=== PATIENT | female | born 1945 | race Caucasian/White ===

== ENCOUNTER 2023-03-08 16:06 | Outpatient (CLI) | payer MEDICARE, SELFPAY ==
--- NOTE | 2023-03-08 16:13 | XR_ITS ---
WS: [id number] XR chest 2V* [id number] REASON FOR EXAM: R07.81 - Pleurodynia FINDINGS: Significant tortuosity and ectasia of the thoracic aorta without aneurysmal dilatation. The heart size is within normal limits. Calcified granulomatous disease. Significant artifact overlying the lung lopez on the PA view which appears to be related to the matthieu ent's back. This creates the impression of multiple small nodules. There is a vague density in the left lower lung field. Uncertain if this also is artifact. XR/XR chest 2V* [id number] IMPRESSION: Excessive overlying artifact limits diagnostic quality the examination. The fro ntal view should be repeated with the artifact removed if possible.
--- NOTE | 2023-03-08 16:13 | XR_ITS ---
WS: [id number] XR elbow LT min 3V* [id number] REASON FOR EXAM: M25.522 - Pain in left elbow FINDINGS: The anterior fat pad is identified but does not appear to be displaced by an effusion. No acute fracture or focal bone lesion. Joint spaces of the elbow are intact and relatively well preserved. Prominent osteophyte from the coronoid process. This could be chronic posttraumatic change. There may be some narrowing of the ulna no humeral joint space anteriorly and posteriorly. No soft tissue abnormality. 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
== END 2023-03-08 16:07 | disposition home or self-care (01) ==
PROVIDERS: PCP Nurse Practitioner Family; Visit Provider Nurse Practitioner Family
DX: M25.522 Pain in left elbow (principal); R07.81 Pleurodynia; N39.0 Urinary tract infection, site not specified; I10 Essential (primary) hypertension; R53.83 Other fatigue
CPT/HCPCS: 71046; 73080; 80053; 80061; 81000; 84443; 85025; 87077; 87086; 87184

== ENCOUNTER 2023-03-10 15:33 | Outpatient (CLI) | payer MEDICARE, SELFPAY ==
--- NOTE | 2023-03-10 15:50 | XRR_ITS ---
PROCEDURE INFORMATION: Exam: XR Chest Exam date and time: 03/10/2023 3:52 PM Age: 78 years old Clinical indication: Pain; Pleuordynia; Additional info: R07.81 - pleurodynia TECHNIQUE: Imaging protocol: Radiologic exam of the chest. Views: 2 views. COMPARISON: CR XR chest 2V* [id number] 03/08/2023 4:23 PM FINDINGS: Airway: Lateral view demonstrates increased AP diameter of the chest suggestive of obstructive airways disease. Frontal view demonstrates overall decreased inspiratory effort. Mild increased interstitial markings are seen within the lower lungs, left slightly greater than right. Findings likely reflect component of mild interstitial infiltrate or pneumonitis, with some component of small amount of subsegmental atelectasis. No consolidation. Lungs: See Airway finding. Pleural spaces: Unremarkable. No pleural effusion. No pneumothorax. Heart/Mediastinum: No significant cardiomegaly. Vasculature: Arteriosclerosis of the thoracic aorta. Bones/joints: Thoracic kyphosis is seen. XR/XR chest 2V* [id number] IMPRESSION: Mild increased interstitial markings lower lungs, [id number], suggesting mild interstitial infiltrate or pneumonitis with some component of small amount of subsegmental atelectasis, for follow-up. No consolidation or effusion.
== END 2023-03-10 15:34 | disposition home or self-care (01) ==
LOC: RAD 15:37
PROVIDERS: PCP Nurse Practitioner Family; Visit Provider Nurse Practitioner Family
DX: R07.81 Pleurodynia (principal)
CPT/HCPCS: 71046

== ENCOUNTER → 2023-03-14 13:58 | Outpatient (BNVA) | payer MEDICARE, SELFPAY | PROVIDERS: PCP Nurse Practitioner Family; Visit Provider Nurse Practitioner Family | DX: N39.0 Urinary tract infection, site not specified (principal) | CPT/HCPCS: 87086 ==

== ENCOUNTER 2023-03-21 12:55 | Emergency (ER) | payer MEDICARE, SELFPAY ==
[2023-03-21 13:00] VITALS: BP 112/80; PULSE 88; RESP 14; TEMP 36.7; O2SAT 92; BMI 27.4
--- NOTE | 2023-03-21 13:03 | ECG_ITS ---
[facility] Test Date: 2023-03-21 Pat Name: Angelic Rodriguez Department: Room: Gender: Female Bench Molder: : 1945 Requested By: Gonsalo Palma Order Number: [id number] Brendon MD: Rashard Parr M.D. Measurements Intervals [place] Rate: 96 P: 0 OR: 0 QRS: -12 QRSD: 93 T: -3 QT: 368 QTc: 465 Interpretive Statements ATRIAL FIBRILLATION MODERATE VOLTAGE CRITERIA FOR LVH, CONSIDER NORMAL VARIANT [MEETS CRITERIA IN ONE OF: R(aVL), S(V1), R(V5), R(V5/V6)+S(V1)] MODERATE ST DEPRESSION [0.05+ mV ST DEPRESSION] No previous ECG available for comparison Electronically Signed On 03-21-2023 16:52:44 CDT by Rashard Parr M.D. [id number]
--- NOTE | 2023-03-21 13:09 | XRR_ITS ---
PROCEDURE INFORMATION: Exam: XR Chest Exam date and time: 03/21/2023 1:45 PM Age: 78 years old Clinical indication: Other: Weakness TECHNIQUE: Imaging protocol: Radiologic exam of the chest. Views: 1 view. COMPARISON: CR XR chest 2V* [id number] 03/08/2023 3:52 PM FINDINGS: Lungs: Lung volumes are decreased but unchanged. Patchy indistinct interstitial/ground-glass opacities mid lung zones overall slightly improved from previous study possibly secondary to viral pneumonitis. Pleural spaces: Unremarkable. No pleural effusion. No pneumothorax. Heart/Mediastinum: Heart is moderately enlarged, stable. Bones/joints: Unremarkable for age. XR/XR chest 1V portable [id number] IMPRESSION: Stable cardiomegaly with patchy ground-glass infiltrates mid lung zones slightly improved from earlier study.
[2023-03-21 13:26] LABS: Basophils # 0.1 10^3/uL (0.0-0.1); Basophils % 0.9 %; Eosinophils % 0.3 %; Hematocrit 40.5 % (37.0-47.0); Hemoglobin 13.6 g/dL (11.5-15.3); Lymphocytes # 1.3 10^3/uL (0.8-4.8); Lymphocytes % 13.7 %; Mean Corpuscular HGB Conc 33.6 g/dL (30.0-36.0); Mean Corpuscular Hemoglobin 32.9 pg (28.0-34.0); Mean Corpuscular Volume 97.8 fl (81-99); Mean Platelet Volume 10.5 fL (7.4-10.4); Monocytes # 0.8 10^3/uL (0.2-0.9); Monocytes % 8.5 %; Neutrophils # 6.99 10^3/uL (1.8-7.7); Neutrophils % 76.3 %; Nucleated Red Blood Cells % 0 %; Platelet Count 192 10^3/cmm (130-400); Red Blood Count 4.14 10^6/uL (4.1-5.3); White Blood Count 9.2 10^3/uL (4.0-10.0)
[2023-03-21 13:58] LABS: Alanine Aminotransferase 7 U/L (0-33); Albumin Level 3.1 g/dL (3.5-5.2); Alkaline Phosphatase 135 U/L (35-105); Aspartate Amino Transferase 16 U/L (0-32); Blood Urea Nitrogen 11 mg/dL (8-23); Calcium 9.1 mg/dL (8.5-10.5); Carbon Dioxide 19 mmol/L (22-29); Chloride 97 mmol/L (98-107); Creatinine Clr Calc Pharmacy 57.5012; Globulin 4.2 g/dL (1.3-4.6); Glucose 237 mg/dL (65-115); Magnesium 1.9 mg/dL (1.7-2.3); NT Pro B Type Natriuretic Pept 3568 pg/mL (0-450); Osmolality Calculated 283 mOsm/kg (285-295); Sodium 133 mmol/L (136-145); Total Bilirubin 1.1 mg/dL (0.15-1.2); Total Protein 7.3 g/dL (6.6-8.7)
--- NOTE | 2023-03-21 14:01 | ED_ITS ---
HPI - Weakness General: Chief complaint: Weakness Stated complaint: general weakness Time Seen by Provider: 03/21/23 13:08 History of Present Illness: Patient presents to the ER with complaints of generalized weakness. Started earlier today per family. Patient does have a history of a stroke in the past and has left-sided upper and lower extremity weakness to paralysis. Patient has been recently treated for with an antibiotic for a UTI. of last week patient went back to the clinic at [place] and had a culture done. Patient does not know the results of that. Family said patient was rubbing her chest earlier today so they are on for sure if she was having chest pain at that time also patient was complaining of low back pain was similar when she had diagnosed with UTI. MD Complaint: generalized weakness Onset (ago): day(s) (Today) Duration: constant Location: generalized Migration: none Severity: mild Relieving factors: none Exacerbating factors: none Associated symptoms: Denies chest pain, chills, dysuria, fever(s), headache(s), nausea or vomiting Review of Systems General: Reports: 10 or more systems reviewed and unremarkable except in HPI and below Const: Denies: fever(s) or chills Eyes: Denies: change in vision or photophobia ENMT: Denies: throat pain or odynophagia Card: Denies: chest pain Resp: Denies: dyspnea, productive cough or non-productive cough GI: Denies: abdominal pain, nausea or vomiting : Reports: flank pain; Denies: difficulty voiding or dysuria Musc: Reports: back pain; Denies: neck pain Skin/Breast: Denies: rash or pruritus Neuro: Denies: headache(s) Psych: Denies: anxiety or depression PFSH ED PFSH: Medical History A-fib Aneurysm Hyperlipidemia Hypertension Stroke Surgical History Total knee replacement status Social History Smoking and tobacco status: never smoked Second hand smoke exposure: No Alcohol intake: never Substance/Drug Use: never Adopted: No Caregiver/support person: Yes Lives independently: No Marital status: / Number of children: 6 service: No Do you think of yourself as: Straight/Heterosexual Current gender identity: Female Physical Exam Const: COMMON NORMALS: no acute distress, patient oriented x3, no limitations, healthy appearing, alert and well nourished HENMT: COMMON NORMALS: normocephalic, atraumatic, hearing grossly normal bilaterally, external ears normal, Normal external nose present and moist oral mucous membranes HEAD & SCALP: normocephalic and atraumatic NOSE: Normal external nose present EXTERNAL EAR: Yes external ears normal Eye: COMMON NORMALS: Equal, round and reactive pupils present, EOMs intact bilaterally, conjunctivae normal and no scleral icterus CONJUNCTIVA: Yes conjunctivae normal PUPIL: Yes Equal, round and reactive pupils present Neck/C-Spine: COMMON NORMALS: full ROM, no lymphadenopathy, no meningeal signs, no JVD and Thyroid normal THYROID: Thyroid normal Lymph: LYMPHATIC: no lymphadenopathy noted Chest: COMMONS NORMALS: normal inspection of the chest and normal palpation of entire chest wall Resp: COMMON NORMALS: normal respiratory effort, No retractions, No use of accessory muscles and clear to auscultation bilaterally AUSCULTATION: clear to auscultation bilaterally Cardio: COMMON NORMALS: no JVD, regular rate, S1 normal heart sound present and S2 normal heart sound present RATE: regular rate HEART SOUNDS: S1 normal heart sound present and S2 normal heart sound present GI: COMMON NORMALS: Normal to inspection, nondistended, normoactive bowel sounds present, Soft to palpation, non-tender, No hepatosplenomegaly present and no masses PALPATION: Yes Soft to palpation and Yes No hepatosplenomegaly present : COMMON NORMALS: Yes no CVA tenderness BLADDER/KIDNEY EXAM: Yes no CVA tenderness Back/Pelvis: COMMON NORMALS: no CVA tenderness Neuro: COMMON NORMALS: patient oriented x3 SENSORIUM/ORIENTATION: Yes alert MENINGEAL SIGNS: Yes no meningeal signs Course Vital Signs: Vital signs: Vital Signs Temperature 98.0 F 03/21/23 13:00 Pulse Rate 93 03/21/23 14:43 Respiratory Rate 16 03/21/23 14:43 Blood Pressure 112/80 03/21/23 14:43 Pulse Oximetry 96 03/21/23 14:43 Oxygen Delivery Me thod Room Air 03/21/23 14:43 MDM - Weakness Medical Decision Making Patient presents to the ER with complaints of weakness x3 weeks. Patient has had frequent falls, UTI and low blood pressure. Patient just finished an antibiotic for UTI. Family thinks she has not gotten over the last week. Physical exam was performed lab work was obtained which did show a significant urinary tract infection was still in place. Patient was given 1 dose of Levaquin here in the IV. Patient will be discharged home on Levaquin. Patient is to follow-up with her PCP within the next 1 week for further evaluation and treatment of symptoms. Medical Records I reviewed the patient's medical records. Lab Data I reviewed the patient's lab results. 03/21/23 13:20 03/21/23 13:20 Radiology Impressions Chest X-Ray 03/21/23 13:09 IMPRESSION: Stable cardiomegaly with patchy ground-glass infiltrates mid lung zones slightly improved from earlier study. Laboratory Results WBC 9.2 10^3/uL (4.0-10.0) 03/21/23 13:20 RBC 4.14 10^6/uL (4.1-5.3) 03/21/23 13:20 Hgb 13.6 g/dL (11.5-15.3) 03/21/23 13:20 Hct 40.5 % (37.0-47.0) 03/21/23 13:20 MCV 97.8 fl (81-99) 03/21/23 13:20 MCH 32.9 pg (28.0-34.0) 03/21/23 13:20 MCHC 33.6 g/dL (30.0-36.0) 03/21/23 13:20 RDW 14.0 % (12.1-15.1) 03/21/23 13:20 Plt Count 192 10^3/cmm (130-400) 03/21/23 13:20 MPV 10.5 fL (7.4-10.4) H 03/21/23 13:20 Neut % (Auto) 76.3 % 03/21/23 13:20 Lymph % (Auto) 13.7 % 03/21/23 13:20 [place] % (Auto) 8.5 % 03/21/23 13:20 Eos % (Auto) 0.3 % 03/21/23 13:20 Baso % (Auto) 0.9 % 03/21/23 13:20 Neut # (Auto) 6.99 10^3/uL (1.8-7.7) 03/21/23 13:20 Lymph # (Auto) 1.3 10^3/uL (0.8-4.8) 03/21/23 13:20 [place] # (Auto) 0.8 10^3/uL (0.2-0.9) 03/21/23 13:20 Eos # (Auto) 0.0 10^3/uL (0.0-0.8) 03/21/23 13:20 Baso # (Auto) 0.1 10^3/uL (0.0-0.1) 03/21/23 13:20 Nucleated RBC % (auto) 0 % 03/21/23 13:20 Nucleated RBCs # 0.0 /100WBC 03/21/23 13:20 Sodium 133 mmol/L (136-145) L 03/21/23 13:20 Potassium 4.0 mmol/L (3.5-5.1) 03/21/23 13:20 Chloride 97 mmol/L (98-107) L 03/21/23 13:20 Carbon Dioxide 19 mmol/L (22-29) L 03/21/23 13:20 Anion Gap 21.0 (5-19) H 03/21/23 13:20 BUN 11 mg/dL (8-23) 03/21/23 13:20 Creatinine 0.8 mg/dL (0.5-0.9) 03/21/23 13:20 GFR Calculation Not Reportable 03/21/23 13:20 Glucose 237 mg/dL (65-115) H 03/21/23 13:20 Calculated Osmolality 283 mOsm/kg (285-295) L 03/21/23 13:20 Calcium 9.1 mg/dL (8.5-10.5) 03/21/23 13:20 Magnesium 1.9 mg/dL (1.7-2.3) 03/21/23 13:20 Total Bilirubin 1.1 mg/dL (0.15-1.2) 03/21/23 13:20 AST 16 U/L (0-32) 03/21/23 13:20 ALT 7 U/L (0-33) 03/21/23 13:20 Alkaline Phosphatase 135 U/L (35-105) H 03/21/23 13:20 Troponin T Baseline 13 ng/L (0-10) H 03/21/23 13:20 Troponin T 120 Minute 18.30 ng/L (0-10) H 03/21/23 15:30 Delta Troponin T 5.30 ABS# (0-10) 03/21/23 15:30 NT-Pro-B Natriuret Pep 3568 pg/mL (0-450) H 03/21/23 13:20 Total Protein 7.3 g/dL (6.6-8.7) 03/21/23 13:20 Albumin 3.1 g/dL (3.5-5.2) L 03/21/23 13:20 Globulin 4.2 g/dL (1.3-4.6) 03/21/23 13:20 Urine Color [place] (Yellow) 03/21/23 15:30 Urine Appearance Cloudy (CLEAR) A 03/21/23 15:30 Urine pH 6 (5-7) 03/21/23 15:30 Ur Specific [place] 1.015 (1.005-1.030) 03/21/23 15:30 Urine Protein 3+ (Negative) H 03/21/23 15:30 Urine Glucose (UA) Norm (Normal) 03/21/23 15:30 Urine Ketones Negative (Negative) 03/21/23 15:30 Urine Blood Neg (Negative) 03/21/23 15:30 Urine Nitrate Positive (Negative) H 03/21/23 15:30 Urine Bilirubin 2+ (Negative) H 03/21/23 15:30 Urine Urobilinogen 4+ mg/dL (Negative) H 03/21/23 15:30 Ur Leukocyte Esterase Negative (Negative) 03/21/23 15:30 Urine RBC Rare /hpf (0-2) 03/21/23 15:30 Urine WBC 0-4 /hpf (0-5) H 03/21/23 15:30 Ur Squamous Epith Cells Rare /hpf (0-5) 03/21/23 15:30 Amorphous Sediment 1+ /hpf 03/21/23 15:30 Urine Bacteria 3+ /hpf (NONE) H 03/21/23 15:30 Urine Mucus 1+ /hpf 03/21/23 15:30 EKG Data EKG 1: I personally reviewed and interpreted this EKG as follows: EKG interpretation date: 03/21/23 EKG interpretation time: 14:27 Prior EKG tracings: not available for review Interpretation: EKG showed ventricular rate of 96 bpm, in atrial fibrillation type pattern, QRS duration 93, QTc of 421, moderate voltage for LVH, moderate to ST depression. Discharge Plan Discharge Patient Disposition: Home Clinical Impression: Urinary tract infection Qualifiers: Urinary tract infection type: acute cystitis Hematuria presence: without h ematuria Qualified Code(s): N30.00 - Acute cystitis without hematuria Condition: Stable Prescriptions: New levofloxacin 500 mg tablet 500 mg PO DAILY 10 Days Qty: 10 0RF No Action aspirin 325 mg tablet 325 mg PO QAM atorvastatin 40 mg tablet 40 mg PO BEDTIME metoprolol tartrate 25 mg tablet See Rx Instructions .ROUTE .COMPLEX Rx Instructions: 50mg po qam and 25mg po bedtime omeprazole 20 mg tablet,delayed release (DR/EC) 20 mg PO QAM amlodipine 5 mg tablet 5 mg PO QAM magnesium oxide [MagOx] 400 mg (241.3 mg magnesium) tablet See Rx Instructions .ROUTE .COMPLEX Rx Instructions: TAKE 2 TABLETS BY MOUTH ON MONDAYS,MONDAY, AND FRIDAYS; lisinopril 20 mg tablet 20 mg PO BEDTIME (DME) hospital bed See Rx Instructions .Route .MEDSUPPLY Qty: 1 0RF Rx Instructions: As directed (DME) wheelchair See Rx Instructions .Route .MEDSUPPLY Qty: 1 0RF Rx Instructions: As directed potassium chloride 10 mEq capsule, extended release 10 meq PO BID Qty: 60 0RF Miralax 17 gram Powder In Packet 17 g PO DAILY PRN (Reason: Constipation) Lubricant Eye Drops 0.25 % Drops 1 drp ophthalmic (eye) Q4H PRN (Reason: Dry Eye(S)) Flonase 50 mcg/actuation [place],Suspension 2 spray INTRANASAL BEDTIME Rx Instructions: administer into each nostril Claritin 10 mg Tablet 10 mg PO BEDTIME furosemide 40 mg tablet 40 mg PO QAM Discharge Orders: Discharge ED (Routine); Ordered 03/21/23 Ordered By: Gonsalo Palma Referrals: Joceline Mix FNP [Primary Care Provider] - Patient Instructions: Urinary Tract Infection - Women Coding Level of Care Code ED [place] [facility] for Drew Galicia
[2023-03-21 14:14] VITALS: BP 112/80; PULSE 93; RESP 14; O2SAT 94
[2023-03-21 14:17] LABS: Troponin(5th) Baseline 13 ng/L (0-10)
[2023-03-21 14:43] VITALS: BP 112/80; PULSE 93; RESP 16; O2SAT 96
--- NOTE | 2023-03-21 15:50 | ECG_ITS ---
[facility] Test Date: 2023-03-21 Pat Name: Angelic Rodriguez Department: Room: Gender: Female Debubblizer: : 1945 Requested By: Gonsalo Palma Order Number: [id number] Brendon MD: Rashard Parr M.D. Measurements Intervals [place] Rate: 94 P: 0 OR: 0 QRS: -3 QRSD: 98 T: 3 QT: 379 QTc: 475 Interpretive Statements ATRIAL FIBRILLATION MODERATE VOLTAGE CRITERIA FOR LVH, CONSIDER NORMAL VARIANT [MEETS CRITERIA IN ONE OF: R(aVL), S(V1), R(V5), R(V5/V6)+S(V1)] NONSPECIFIC ST & T-WAVE ABNORMALITY Compared to ECG 03/21/2023 14:27:04 T-wave abnormality now present ST (T wave) deviation no longer present Electronically Signed On 03-21-2023 16:56:33 CDT by Rashard Parr M.D. [id number]
[2023-03-21 16:21] LABS: Urine Color Orange (Yellow)
[2023-03-21 16:22] LABS: Add Urine Microscopic? YES; Amorphous Sediment Urine 1+ /hpf; Bacteria Urine 3+ /hpf; Bilirubin Urine 2+ (Negative); Blood Urine Neg (Negative); Glucose Urine UA Norm (Normal); Ketones Urine Negative (Negative); Leukocyte Esterase Urine Negative (Negative); Mucus Urine 1+ /hpf; Nitrate Urine Positive (Negative); Protein Urine 3+ (Negative); RBC Urine RARE /hpf (0-2); Specific Gravity, Urine 1.015 (1.005-1.030); Squamous Epithelial Cell Urine RARE /hpf (0-5); Urine Appearance Cloudy (CLEAR); Urobilinogen Urine 4+ mg/dL (Negative); WBC Urine 0-4 /hpf (0-5); pH Urine 6 (5-7)
[2023-03-21 16:23] LABS: Add Urine Culture? Yes
[2023-03-21] MEDS: levofloxacin-dextrose 5 % 500 MG/100 ML PREMIX 100 MG IV (16:47)
== END 2023-03-21 18:37 | disposition home or self-care (01) ==
PROVIDERS: Emergency Provider Emergency Medicine; PCP Nurse Practitioner Family
DX: N30.00 Acute cystitis without hematuria (principal); Z79.82 Long term (current) use of aspirin; I10 Essential (primary) hypertension; E78.5 Hyperlipidemia, unspecified; Z86.73 Personal history of transient ischemic attack (TIA), and cerebral infarction without residual deficits
CPT/HCPCS: 36415; 71045; 80053; 81001; 83735; 83880; 84484; 85025; 87077; 87086; 87186; 93005; 96365; 96366; 99285; J1956

== ENCOUNTER → 2023-03-22 14:32 | Outpatient (BNVA) | payer MEDICARE, SELFPAY | PROVIDERS: PCP Nurse Practitioner Family; Visit Provider Nurse Practitioner Family | DX: R73.09 Other abnormal glucose (principal) | CPT/HCPCS: 83036 ==

== ENCOUNTER 2023-03-24 21:24 | Emergency (ER) | payer MEDICARE, SELFPAY ==
[2023-03-24] VITALS (7 sets, daily range): BP systolic 73–114; BP diastolic 61–82; PULSE 115–148; RESP 13–28; TEMP 36.2; O2SAT 94–97; BMI 28.8
--- NOTE | 2023-03-24 21:27 | ED_ITS ---
Documented by User: Pal Kat MD 04/05/23 07:16 HPI - Syncope General: Chief Complaint: Syncope Stated Complaint: NEAR SYNCOPE Time Seen by Provider: 03/24/23 21:27 History of Present Illness: Ms. Rodriguez is a 78-year-old lady with complex past medical history including atrial fibrillation, hypertension, hyperlipidemia, stroke, Mckeon's palsy presenti ng to the emergency department for presyncopal event. She reports her baseline health and had sudden onset of symptoms at rest with a prior syncopal symptoms associated with nausea. She notes some shortness of breath and chest discomfort though these are quite mild. She no longer feels lightheaded. She does have baseline neurologic deficits however reports that these are unchanged. Intensity symptoms when present was moderate to severe. Course has improved mildly. No other specific changes in health, exacerbating, or alleviating factors identified. Per supplemental information provided by family patient has had ongoing urinary tract infection, she was seen on 03/21 in the emergency department and treated with IV antibiotics. She was switched to levofloxacin which she has been eric braun. Review of Systems General: Reports: 10 or more systems reviewed and unremarkable except in HPI and below PFSH ED PFSH: Medical History A-fib Aneurysm Hyperlipidemia Hypertension Stroke Surgical History Total knee replacement status Social History Smoking and tobacco status: never smoked Second hand smoke exposure: No Alcohol intake: never Substance/Drug Use: never Adopted: No Caregiver/support person: Yes Lives independently: No Marital status: / Number of children: 6 service: No Do you think of yourself as: Straight/Heterosexual Current gender identity: Female Physical Exam Const: COMMON NORMALS: alert GENERAL APPEARANCE: cooperative, well developed and ill appearing HENMT: COMMON NORMALS: normocephalic and atraumatic HEAD & SCALP: normocephalic and atraumatic THROAT: posterior oropharynx normal Eye: COMMON NORMALS: conjunctivae normal CONJUNCTIVA: Yes conjunctivae normal SCLERA: sclerae normal Neck/C-Spine: COMMON NORMALS: supple GENERAL: Yes trachea midline Resp: COMMON NORMALS: clear to auscultation bilaterally EFFORT & INSPECTION: Yes able to speak in complete sentences AUSCULTATION: clear to auscultation bilaterally Cardio: RATE: tachycardic RHYTHM: abnormal rhythm irregularly irregular GI: COMMON NORMALS: Soft to palpation PALPATION: Yes Soft to palpation and No Tenderness to palpation present (GI) PERCUSSION: normal to percussion Extremity: GENERAL: Yes normal exam except as noted and No edema Neuro: SENSORIUM/ORIENTATION: Yes alert and No Orientation impaired OTHER: Facial droop and baseline deficits reported chronic Psych: COMMON NORMALS: mental status grossly normal and Normal thought process present THOUGHT PROCESS: Normal thought process present Course Vital Signs: Vital signs: Vital Signs Temperature 0 F L 03/25/23 06:10 Pulse Rate 0 L 03/25/23 06:10 Respiratory Rate 0 L 03/25/23 06:10 Blood Pressure 0/0 03/25/23 06:10 Pulse Oximetry 0 L 03/25/23 06:10 Oxygen Delivery Me thod Nasal Cannula 03/25/23 00:30 Oxygen Flow Rate 3 03/25/23 00:30 MDM - Syncope Medical Decision Making 78-year-old lady with history of stroke and atrial fibrillation presenting with presyncopal episode in the context of atrial fibrillation with RVR. Rates 140s to 160s with initially adequate blood pressure. Patient is chronically ill in appearance. IV fluids and low-dose metoprolol ordered. Patient received a single dose of 2.5 mg metoprolol which did improve rate to more in the 100-140 range. Subsequently additional information provided was that patient currently has UTI. Clinical picture is likely more consistent with urosepsis and subsequent trigger of A-fib with RVR. Lactate is elevated. Additional fluids to be 30 cc/kg fluid requirements ordered. Antibiotics ordered. Patient treated for nausea and vomiting likely at least partially secondary to sepsis. Abdominal exam remains benign. Labs notable for leukocytosis, normal hemoglobin and platelet count. Metabolic panel with evidence of metabolic stress secondary to lactic acidosis, creatinine elevated above baseline. BNP is elevated however on [id number] ultrasound with limited views of the heart and IVC patient still has some collapse of IVC a nd overall ejection fraction appears normal to mildly reduced. Chest x-ray demonstrates no lobar consolidation or pneumothorax. Patient does have cardiomegaly. The results of ED evaluation were discussed with the patient including plan for admission due to requirement for level of care not available if discharged to prevent significant worsening/deterioration. Patient agreeable with plan. Discussed with hospitalist service who was agreeable to admit patient. Discussion with admitting physician additional imaging ordered and pending at time of admission. Discussed with overnight ED physician Dr. Kaplan. 78-year-old female who I was requested to see at the bedside for potential central line placement due to the need for multiple medications including pressors for blood pressure support. On my evaluation at bedside, the patient was quite short of breath. She was quite tachypneic. She had come back from CTA of the chest and belly which was pending results at the time. Ultrasound was used to locate the right IJ which was enlarged/engorged. Line was placed with good blood return, no resistance, no complication. Sometime later, I was requested by nursing staff to evaluate the patient at the bedside again. She essentially had gone nonresponsive at that point with agonal respirations. Cfb-ehsrs-[id number] ventilation was immediately started. The patient began to bradycardia down, to the 40s. Pulse was not palpable. CPR was started immediately. Epinephrine was given for PEA. The patient was intubated with an 8 endotracheal tube, 24 at the lip using a MAC 4 blade without complication. After 2 mg of epinephrine, pulse was obtained, but only for short duration, as the patient bradycardia down again. She was given more epinephrine and bicarbonate at that point. No rhythm changes noted after 3 more rounds of CPR. Family was called to the bedside, allowed to say goodbye, and code was stopped/terminated. Time of was 1:53 AM Medical Records I reviewed the patient's medical records. Lab Data I reviewed the patient's lab results. 03/24/23 21:51 03/24/23 21:51 Radiology Impressions Chest X-Ray 03/24/23 21:39 IMPRESSION: Cardiomegaly, negative for infiltrate Abdomen/Pelvis CTA 03/24/23 23:39 IMPRESSION: 1. 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 2. Hepatic steatosis. 3. Left kidney cyst, negative for follow-up advised. 4. 9.2 mm calcified fibroid. 5. Diverticulosis without diverticulitis. 6. Dumont catheter in the urinary bladder with air in the urinary bladder presumed iatrogenic. 7. Reflux of contrast into the intrahepatic veins suggesting congestive heart failure. 8. Gallbladder wall appears prominent with pericholecystic fluid, ultrasound could further evaluate this. THIS REPORT CONTAINS FINDINGS THAT MAY BE CRITICAL TO PATIENT CARE. The findings were verbally communicated via telephone conference with Dr. Hernandez at 1:37 AM CDT on 03/25/2023. The findings were acknowledged and understood. COMMENTS: Consistent with the [employer]'s Incidental Findings Committee white paper (J Am Yanick Radiol 2018): Any incidental renal lesion less than 1 cm or classified as too small to characterize, or any incidental cystic renal lesion characterized as simple-appearing, is likely benign. No follow-up imaging is recommended for these lesions per consensus recommendations based on imaging criteria. Chest CT 03/25/23 00:43 IMPRESSION: 1. Large bilateral pulmonary emboli extending from the distal portions of the right and left main pulmonary arteries with right heart strain given an RV to LV ratio of approximately 1.75. 2. Emphysematous changes. 3. Patchy bilateral peripheral airspace infiltrates. 4. Left lower lobe 12.4 mm pulmonary nodule. For both low risk and high risk patients, consider CT Chest at 3 months, PET/CT, or biopsy. (Reference: Nella) 5. Right hepatic lobe cyst. 6. Left kidney cyst, negative for follow up. 7. Gallbladder wall calcification suspected. 8. Aorta bi-iliac artery stent. 9. Coronary artery atherosclerotic calcifications. COMMENTS: 1. Consistent with the [employer]'s Incidental Findings Committee white paper (J Am Yanick Radiol 2018): Any incidental renal lesion less than 1 cm or classified as too small to characterize, or any incidental cystic renal lesion characterized as simple-appearing, is likely benign. No follow-up imaging is recommended for these lesions per consensus recommendations based on imaging criteria. 2. In the absence of a history or active diagnosis of lung cancer, it is recommended that this patient with emphysema be evaluated for enrollment in a low dose CT lung cancer screening program. REFERENCES: Nella Conde, et al. Guidelines for Management of Incidental Pulmonary Nodules Detected on CT Images: From the Fleischner Society 2017. Radiology. 2017;284(1):228-243. ADDENDUM: 03/25/23 0128 THIS REPORT CONTAINS FINDINGS THAT MAY BE CRITICAL TO PATIENT CARE. The findings were verbally communicated via telephone conference with NISHA HERNANDEZ at 1:26 AM TERRENCE on 03/25/2023. The findings were acknowledged and understood. Laboratory Results WBC 13.2 10^3/uL (4.0-10.0) H 03/24/23 21:51 RBC 4.23 10^6/uL (4.1-5.3) 03/24/23 21:51 Hgb 14.1 g/dL (11.5-15.3) 03/24/23 21:51 Hct 42.3 % (37.0-47.0) 03/24/23 21:51 MCV 100.0 fl (81-99) H 03/24/23 21:51 MCH 33.3 pg (28.0-34.0) 03/24/23 21:51 MCHC 33.3 g/dL (30.0-36.0) 03/24/23 21:51 RDW 14.4 % (12.1-15.1) 03/24/23 21:51 Plt Count 178 10^3/cmm (130-400) 03/24/23 21:51 MPV 10.8 fL (7.4-10.4) H 03/24/23 21:51 Neut % (Auto) 66.3 % 03/24/23 21:51 Lymph % (Auto) 24.5 % 03/24/23 21:51 [place] % (Auto) 7.1 % 03/24/23 21:51 Eos % (Auto) 0.3 % 03/24/23 21:51 Baso % (Auto) 0.7 % 03/24/23 21:51 Neut # (Auto) 8.74 10^3/uL (1.8-7.7) H 03/24/23 21:51 Lymph # (Auto) 3.2 10^3/uL (0.8-4.8) 03/24/23 21:51 [place] # (Auto) 0.9 10^3/uL (0.2-0.9) 03/24/23 21:51 Eos # (Auto) 0.0 10^3/uL (0.0-0.8) 03/24/23 21:51 Baso # (Auto) 0.1 10^3/uL (0.0-0.1) 03/24/23 21:51 Nucleated RBC % (auto) 0 % 03/24/23 21:51 Nucleated RBCs # 0.0 /100WBC 03/24/23 21:51 Sodium 136 mmol/L (136-145) 03/24/23 21:51 Potassium 5.1 mmol/L (3.5-5.1) 03/24/23 21:51 Chloride 98 mmol/L (98-107) 03/24/23 21:51 Carbon Dioxide 18 mmol/L (22-29) L 03/24/23 21:51 Anion Gap 25.1 (5-19) H 03/24/23 21:51 BUN 23 mg/dL (8-23) 03/24/23 21:51 Creatinine 1.1 mg/dL (0.5-0.9) H 03/24/23 21:51 GFR Calculation Not Reportable 03/24/23 21:51 Glucose 248 mg/dL (65-115) H 03/24/23 21:51 Calculated Osmolality 294 mOsm/kg (285-295) 03/24/23 21:51 Lactic Acid Cancelled 03/25/23 00:32 Lactic Acid (Sepsis) 8.1 mmol/L (0.5-2.2) H* 03/25/23 00:32 Calcium 9.7 mg/dL (8.5-10.5) 03/24/23 21:51 Magnesium 2.0 mg/dL (1.7-2.3) 03/24/23 21:51 Total Bilirubin 0.9 mg/dL (0.15-1.2) 03/24/23 21:51 AST 24 U/L (0-32) 03/24/23 21:51 ALT 10 U/L (0-33) 03/24/23 21:51 Alkaline Phosphatase 149 U/L (35-105) H 03/24/23 21:51 Troponin T Baseline 67 ng/L (0-10) H 03/24/23 21:51 Troponin T 120 Minute 64.01 ng/L (0-10) H 03/25/23 00:32 Delta Troponin T -2.99 ABS# (0-10) L 03/25/23 00:32 NT-Pro-B Natriuret Pep 3310 pg/mL (0-450) H 03/24/23 21:51 Total Protein 7.7 g/dL (6.6-8.7) 03/24/23 21:51 Albumin 3.4 g/dL (3.5-5.2) L 03/24/23 21:51 Globulin 4.3 g/dL (1.3-4.6) 03/24/23 21:51 Urine Color Yellow (Yellow) 03/25/23 00:20 Urine Appearance Hazy (CLEAR) A 03/25/23 00:20 Urine pH 5 (5-7) 03/25/23 00:20 Ur Specific [place] 1.030 (1.005-1.030) 03/25/23 00:20 Urine Protein Trace (Negative) 03/25/23 00:20 Urine Glucose (UA) Norm (Normal) 03/25/23 00:20 Urine Ketones Negative (Negative) 03/25/23 00:20 Urine Blood Neg (Negative) 03/25/23 00:20 Urine Nitrate Negative (Negative) 03/25/23 00:20 Urine Bilirubin Neg (Negative) 03/25/23 00:20 Urine Urobilinogen Norm mg/dL (Negative) 03/25/23 00:20 Ur Leukocyte Esterase Negative (Negative) 03/25/23 00:20 Urine RBC 0-4 /hpf (0-2) H 03/25/23 00:20 Urine WBC 0-4 /hpf (0-5) H 03/25/23 00:20 Ur Squamous Epith Cells 5-10 /hpf (0-5) H 03/25/23 00:20 Amorphous Sediment Not Reportable 03/25/23 00:20 Urine Bacteria 2+ /hpf (NONE) H 03/25/23 00:20 Critical Care Time Critical Care Time: Critical Care Time: Yes Total Critical Care Time: 35 Attestation: Due to a high probability of clinically significant, possibly life threatening deterioration, the patient required my highest level of attention and pre paredness to intervene emergently and I personally spent this critical care time directly and personally managing the patient. This critical care time included obtaining a history; examining the patient; pulse oximetry; ordering and review of laboratory and imaging studies; arranging urgent treatment with development of a management plan; evaluation of patient's response to treatment; frequent re assessment; and, discussions with other providers as applicable. It was exclusive of separately billable procedures. Discharge Plan Discharge Patient Disposition: Clinical Impression: Severe sepsis, Acute UTI, Septic shock, Pulmonary embolism Condition: Prescriptions: No Action aspirin 325 mg tablet 325 mg PO QAM atorvastatin 40 mg tablet 40 mg PO BEDTIME metoprolol tartrate 25 mg tablet See Rx Instructions .ROUTE .COMPLEX Rx Instructions: 50mg po qam and 25mg po bedtime omeprazole 20 mg tablet,delayed release (DR/EC) 20 mg PO QAM amlodipine 5 mg tablet 5 mg PO QAM magnesium oxide [MagOx] 400 mg (241.3 mg magnesium) tablet See Rx Instructions .ROUTE .COMPLEX Rx Instructions: TAKE 2 TABLETS BY MOUTH ON MONDAYS,MONDAY, AND FRIDAYS; lisinopril 20 mg tablet 20 mg PO BEDTIME (DME) hospital bed See Rx Instructions .Route .MEDSUPPLY Qty: 1 0RF Rx Instructions: As directed (DME) wheelchair See Rx Instructions .Route .MEDSUPPLY Qty: 1 0RF Rx Instructions: As directed potassium chloride 10 mEq capsule, extended release 10 meq PO BID Qty: 60 0RF Miralax 17 gram Powder In Packet 17 g PO DAILY PRN (Reason: Constipation) Lubricant Eye Drops 0.25 % Drops 1 drp ophthalmic (eye) Q4H PRN (Reason: Dry Eye(S)) Flonase 50 mcg/actuation [place],Suspension 2 spray INTRANASAL BEDTIME Rx Instructions: administer into each nostril Claritin 10 mg Tablet 10 mg PO BEDTIME furosemide 40 mg tablet 40 mg PO QAM Referrals: Joceline Mix FNP [Primary Care Provider] - Coding Level of Care Code ED Vending Manager for Chg Fwd Documented by User: Juan José Kaplan DO 03/25/23 03:37 HPI - Syncope General: Chief Complaint: Syncope Stated Complaint: NEAR SYNCOPE Time Seen by Provider: 03/24/23 21:27 [facility] ED PFS: Medical History A-fib Aneurysm Hyperlipidemia Hypertension Stroke Surgical History Total knee replacement status Social History Smoking and tobacco status: never smoked Second hand smoke exposure: No Alcohol intake: never Substance/Drug Use: never Adopted: No Caregiver/support person: Yes Lives independently: No Marital status: / Number of children: 6 service: No Do you think of yourself as: Straight/Heterosexual Current gender identity: Female Procedures Central Line Placement Right IJ: Time Out Performed: Yes Patient Placed on Monitor/Pulse Ox: Yes Prep: mask, gown and gloves Central Line Prep: Chlorhexidine scrub Local Anesthetic: lidocaine 1% Amount of anesthesia used (mL): 3 Ultrasound Used for Placement: Yes Central Line Lumen Inserted: triple Post Procedure: sutured in place, good blood return, all ports aspirated, flushed, capped and sterile dressing applied Patient Tolerated Procedure: well and no complications Complications: none Intubation Time out performed: No sedative: none Laryngoscope: Sukh (4) ET Tube Size: 8 ET Tube Uncuffed: No Tube Secured Depth (cm): 24 Tube Placement Confirmation: visualized tube passing through cords, equal breath sounds bilaterally and confirmation by capnometry Patient Tolerated Procedure: no complications Intubation Complications: none Course Vital Signs: Vital signs: Vital Signs Temperature 0 F L 03/25/23 06:10 Pulse Rate 0 L 03/25/23 06:10 Respiratory Rate 0 L 03/25/23 06:10 Blood Pressure 0/0 03/25/23 06:10 Pulse Oximetry 0 L 03/25/23 06:10 Oxygen Delivery Me thod Nasal Cannula 03/25/23 00:30 Oxygen Flow Rate 3 03/25/23 00:30 MDM - Syncope Medical Decision Making 78-year-old lady with history of stroke and atrial fibrillation presenting with presyncopal episode in the context of atrial fibrillation with RVR. Rates 140s to 160s with initially adequate blood pressure. Patient is chronically ill in appearance. IV fluids and low-dose metoprolol ordered. Patient received a single dose of 2. 5 mg metoprolol which did improve rate to more in the 100-140 range. Subsequently additional information provided was that patient currently has UTI. Clinical picture is likely more consistent with urosepsis. Lactate is elevated. Additional fluids to be 30 cc/kg fluid requirements ordered. Anti biotics ordered. Patient treated for nausea and vomiting likely at least partially secondary to sepsis. Abdominal exam remains benign. Labs notable for leukocytosis, normal hemoglobin and platelet count. Metabolic panel with evidence of metabolic stress secondary to lactic acidosis, creatinine elevated above baseline. BNP is elevated however on [id number]-[id number] ultrasound with limited views of the heart and IVC patient still has some collapse of IVC and overall ejection fraction appears normal to mildly reduced. Chest x-ray demonstrates no lobar consolidation or pneumothorax. Patient does have cardiomegaly. The results of ED evaluation were discussed with the patient including plan for admission due to requirement for level of care not available if discharged to prevent significant worsening/deterioration. Patient agreeable with plan. Discussed with hospitalist service who was agreeable to admit patient. 78-year-old female who I was requested to see at the bedside for potential central line placement due to the need for multiple medications including pressors for blood pressure support. On my evaluation at bedside, the patient was quite short of breath. She was quite tachypneic. She had come back from CTA of the chest and belly which was pending results at the time. Ultrasound was used to locate the right IJ which was enlarged/engorged. Line was placed with good blood return, no resistance, no complication. Sometime later, I was requested by nursing staff to evaluate the patient at the bedside again. She essentially had gone nonresponsive at that point with agonal respirations. Xja-yvnjy-gauw ventilation was immediately started. The patient began to rachael cardia down, to the 40s. Pulse was not palpable. CPR was started immediately. Epinephrine was given for PEA. The patient was intubated with an 8 endotracheal tube, 24 at the lip using a MAC 4 blade without complication. After 2 mg of epinephrine, pulse was obtained, but only for short duration, as the patient bradycardia down again. She was given more epinephrine and bicarbonate at that point. No rhythm changes noted after 3 more rounds of CPR. Family was called to the bedside, allowed to say goodbye, and code was stopped/terminated. Time of was 1:53 AM Lab Data 03/24/23 21:51 03/24/23 21:51 Radiology Impressions Chest X-Ray 03/24/23 21:39 IMPRESSION: Cardiomegaly, negative for infiltrate Abdomen/Pelvis CTA 03/24/23 23:39 IMPRESSION: 1. 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 2. Hepatic steatosis. 3. Left kidney cyst, negative for follow-up advised. 4. 9.2 mm calcified fibroid. 5. Diverticulosis without diverticulitis. 6. Dumont catheter in the urinary bladder with air in the urinary bladder presumed iatrogenic. 7. Reflux of contrast into the intrahepatic veins suggesting congestive heart failure. 8. Gallbladder wall appears prominent with pericholecystic fluid, ultrasound could further evaluate this. THIS REPORT CONTAINS FINDINGS THAT MAY BE CRITICAL TO PATIENT CARE. The findings were verbally communicated via telephone conference with Dr. Hernandez at 1:37 AM CDT on 03/25/2023. The findings were acknowledged and understood. COMMENTS: Consistent with the [place] [employer]'s Incidental Findings Committee white paper (J Am Yanick Radiol 2018): Any incidental renal lesion less than 1 cm or classified as too small to characterize, or any incidental cystic renal lesion characterized as simple-appearing, is likely benign. No follow-up imaging is recommended for these lesions per consensus recommendations based on imaging criteria. Chest CT 03/25/23 00:43 IMPRESSION: 1. Large bilateral pulmonary emboli extending from the distal portions of the right and left main pulmonary arteries with right heart strain given an RV to LV ratio of approximately 1.75. 2. Emphysematous changes. 3. Patchy bilateral peripheral airspace infiltrates. 4. Left lower lobe 12.4 mm pulmonary nodule. For both low risk and high risk patients, consider CT Chest at 3 months, PET/CT, or biopsy. (Reference: Nella) 5. Right hepatic lobe cyst. 6. Left kidney cyst, negative for follow up. 7. Gallbladder wall calcification suspected. 8. Aorta bi-iliac artery stent. 9. Coronary artery atherosclerotic calcifications. COMMENTS: 1. Consistent with the [place] [employer]'s Incidental Findings Committee white paper (J Am Yanick Radiol 2018): Any incidental renal lesion less than 1 cm or classified as too small to characterize, or any incidental cystic renal lesion characterized as simple-appearing, is likely benign. No follow-up imaging is recommended for these lesions per consensus recommendations based on imaging criteria. 2. In the absence of a history or active diagnosis of lung cancer, it is recommended that this patient with emphysema be evaluated for enrollment in a low dose CT lung cancer screening program. REFERENCES: Nella Conde, et al. Guidelines for Management of Incidental Pulmonary Nodules Detected on CT Images: From the Fleischner Society 2017. Radiology. 2017;284(1):228-243. ADDENDUM: 03/25/23 0128 THIS REPORT CONTAINS FINDINGS THAT MAY BE CRITICAL TO PATIENT CARE. The findings were verbally communicated via telephone conference with NISHA HERNANDEZ at 1:26 AM CDT on 03/25/2023. The findings were acknowledged and understood. Laboratory Results WBC 13.2 10^3/uL (4.0-10.0) H 03/24/23 21:51 RBC 4.23 10^6/uL (4.1-5.3) 03/24/23 21:51 Hgb 14.1 g/dL (11.5-15.3) 03/24/23 21:51 Hct 42.3 % (37.0-47.0) 03/24/23 21:51 MCV 100.0 fl (81-99) H 03/24/23 21:51 MCH 33.3 pg (28.0-34.0) 03/24/23 21:51 MCHC 33.3 g/dL (30.0-36.0) 03/24/23 21:51 RDW 14.4 % (12.1-15.1) 03/24/23 21:51 Plt Count 178 10^3/cmm (130-400) 03/24/23 21:51 MPV 10.8 fL (7.4-10.4) H 03/24/23 21:51 Neut % (Auto) 66.3 % 03/24/23 21:51 Lymph % (Auto) 24.5 % 03/24/23 21:51 [place] % (Auto) 7.1 % 05/19/23 21:51 Eos % (Auto) 0.3 % 03/24/23 21:51 Baso % (Auto) 0.7 % 03/24/23 21:51 Neut # (Auto) 8.74 10^3/uL (1.8-7.7) H 03/24/23 21:51 Lymph # (Auto) 3.2 10^3/uL (0.8-4.8) 03/24/23 21:51 [place] # (Auto) 0.9 10^3/uL (0.2-0.9) 03/24/23 21:51 Eos # (Auto) 0.0 10^3/uL (0.0-0.8) 03/24/23 21:51 Baso # (Auto) 0.1 10^3/uL (0.0-0.1) 03/24/23 21:51 Nucleated RBC % (auto) 0 % 03/24/23 21:51 Nucleated RBCs # 0.0 /100WBC 03/24/23 21:51 Sodium 136 mmol/L (136-145) 03/24/23 21:51 Potassium 5.1 mmol/L (3.5-5.1) 03/24/23 21:51 Chloride 98 mmol/L (98-107) 03/24/23 21:51 Carbon Dioxide 18 mmol/L (22-29) L 03/24/23 21:51 Anion Gap 25.1 (5-19) H 03/24/23 21:51 BUN 23 mg/dL (8-23) 03/24/23 21:51 Creatinine 1.1 mg/dL (0.5-0.9) H 03/24/23 21:51 GFR Calculation Not Reportable 03/24/23 21:51 Glucose 248 mg/dL (65-115) H 03/24/23 21:51 Calculated Osmolality 294 mOsm/kg (285-295) 03/24/23 21:51 Lactic Acid Cancelled 03/25/23 00:32 Lactic Acid (Sepsis) 8.1 mmol/L (0.5-2.2) H* 03/25/23 00:32 Calcium 9.7 mg/dL (8.5-10.5) 03/24/23 21:51 Magnesium 2.0 mg/dL (1.7-2.3) 03/24/23 21:51 Total Bilirubin 0.9 mg/dL (0.15-1.2) 03/24/23 21:51 AST 24 U/L (0-32) 03/24/23 21:51 ALT 10 U/L (0-33) 03/24/23 21:51 Alkaline Phosphatase 149 U/L (35-105) H 03/24/23 21:51 Troponin T Baseline 67 ng/L (0-10) H 03/24/23 21:51 Troponin T 120 Minute 64.01 ng/L (0-10) H 03/25/23 00:32 Delta Troponin T -2.99 ABS# (0-10) L 03/25/23 00:32 NT-Pro-B Natriuret Pep 3310 pg/mL (0-450) H 03/24/23 21:51 Total Protein 7.7 g/dL (6.6-8.7) 03/24/23 21:51 Albumin 3.4 g/dL (3.5-5.2) L 03/24/23 21:51 Globulin 4.3 g/dL (1.3-4.6) 03/24/23 21:51 Urine Color Yellow (Yellow) 03/25/23 00:20 Urine Appearance Hazy (CLEAR) A 03/25/23 00:20 Urine pH 5 (5-7) 03/25/23 00:20 Ur Specific [place] 1.030 (1.005-1.030) 03/25/23 00:20 Urine Protein Trace (Negative) 03/25/23 00:20 Urine Glucose (UA) Norm (Normal) 03/25/23 00:20 Urine Ketones Negative (Negative) 03/25/23 00:20 Urine Blood Neg (Negative) 03/25/23 00:20 Urine Nitrate Negative (Negative) 03/25/23 00:20 Urine Bilirubin Neg (Negative) 03/25/23 00:20 Urine Urobilinogen Norm mg/dL (Negative) 03/25/23 00:20 Ur Leukocyte Esterase Negative (Negative) 03/25/23 00:20 Urine RBC 0-4 /hpf (0-2) H 03/25/23 00:20 Urine WBC 0-4 /hpf (0-5) H 03/25/23 00:20 Ur Squamous Epith Cells 5-10 /hpf (0-5) H 03/25/23 00:20 Amorphous Sediment Not Reportable 03/25/23 00:20 Urine Bacteria 2+ /hpf (NONE) H 03/25/23 00:20 Discharge Plan Discharge Patient Disposition: Clinical Impression: Severe sepsis, Acute UTI, Septic shock, Pulmonary embolism Condition: Prescriptions: No Action aspirin 325 mg tablet 325 mg PO QAM atorvastatin 40 mg tablet 40 mg PO BEDTIME metoprolol tartrate 25 mg tablet See Rx Instructions .ROUTE .COMPLEX Rx Instructions: 50mg po qam and 25mg po bedtime omeprazole 20 mg tablet,delayed release (DR/EC) 20 mg PO QAM amlodipine 5 mg tablet 5 mg PO QAM magnesium oxide [MagOx] 400 mg (241.3 mg magnesium) tablet See Rx Instructions .ROUTE .COMPLEX Rx Instructions: TAKE 2 TABLETS BY MOUTH ON MONDAYS,MONDAY, AND FRIDAYS; lisinopril 20 mg tablet 20 mg PO BEDTIME (DME) hospital bed See Rx Instructions .Route .MEDSUPPLY Qty: 1 0RF Rx Instructions: As directed (DME) wheelchair See Rx Instructions .Route .MEDSUPPLY Qty: 1 0RF Rx Instructions: As directed potassium chloride 10 mEq capsule, extended release 10 meq PO BID Qty: 60 0RF Miralax 17 gram Powder In Packet 17 g PO DAILY PRN (Reason: Constipation) Lubricant Eye Drops 0.25 % Drops 1 drp ophthalmic (eye) Q4H PRN (Reason: Dry Eye(S)) Flonase 50 mcg/actuation [place],Suspension 2 spray INTRANASAL BEDTIME Rx Instructions: administer into each nostril Claritin 10 mg Tablet 10 mg PO BEDTIME furosemide 40 mg tablet 40 mg PO QAM Referrals: Joceline Mix FNP [Primary Care Provider] - Coding Level of Care Code ED Vending Manager for [facility]
--- NOTE | 2023-03-24 21:30 | ECG_ITS ---
Test Date: 2023-03-24 Pat Name: Angelic Rodriguez Department: Room: Gender: Female Vendor Specialist: : [id number] Requested By: Pal Kat Order Number: [id number] Brendon MD: Eleonora Zimmer M.D. Measurements Intervals [place] Rate: 151 P: 0 SD: 0 QRS: 26 QRSD: 85 T: -45 QT: 284 QTc: 451 Interpretive Statements ATRIAL FIBRILLATION WITH RAPID VENTRICULAR RESPONSE ST DEVIATION AND MODERATE T-WAVE ABNORMALITY, CONSIDER INFERIOR ISCHEMIA [-0.1+ mV T-WAVE IN II/aVF] Compared to ECG 03/21/2023 15:50:20 Possible ischemia now present T-wave abnormality still present Electronically Signed On 03-25-2023 5:54:34 CDT by Eleonora Zimmer M.D. [id number]
--- NOTE | 2023-03-24 21:39 | XRR_ITS ---
PROCEDURE INFORMATION: Exam: XR Chest Exam date and time: 03/24/2023 9:48 PM Age: 78 years old Clinical indication: Pain; Chest pressure; Additional info: Near syncope TECHNIQUE: Imaging protocol: Radiologic exam of the chest. Views: 1 view. COMPARISON: CR XR chest 1V portable [id number] 03/21/2023 1:45 PM FINDINGS: Lungs: Unremarkable. No consolidation. Pleural spaces: Unremarkable. No pleural effusion. No pneumothorax. Heart/Mediastinum: Cardiomegaly. Bones/joints: Unremarkable. XR/XR chest 1V portable [id number] IMPRESSION: Cardiomegaly, negative for infiltrate
[2023-03-24] MEDS: metoprolol tartrate 1 mg/1 mL SDV 5 mL 2.5 MG IVP (21:44)
[2023-03-24] MEDS: sodium chloride 0.9% 500 ML 999 ML IV (21:44)
[2023-03-24 21:59] LABS: Basophils # 0.1 10^3/uL (0.0-0.1); Basophils % 0.7 %; Eosinophils % 0.3 %; Hematocrit 42.3 % (37.0-47.0); Hemoglobin 14.1 g/dL (11.5-15.3); Lymphocytes # 3.2 10^3/uL (0.8-4.8); Lymphocytes % 24.5 %; Mean Corpuscular HGB Conc 33.3 g/dL (30.0-36.0); Mean Corpuscular Hemoglobin 33.3 pg (28.0-34.0); Mean Platelet Volume 10.8 fL (7.4-10.4); Monocytes # 0.9 10^3/uL (0.2-0.9); Monocytes % 7.1 %; Neutrophils # 8.74 10^3/uL (1.8-7.7); Neutrophils % 66.3 %; Nucleated Red Blood Cells % 0 %; Platelet Count 178 10^3/cmm (130-400); Red Blood Count 4.23 10^6/uL (4.1-5.3); Red Cell Distribution Width 14.4 % (12.1-15.1); White Blood Count 13.2 10^3/uL (4.0-10.0)
[2023-03-24] MEDS: ondansetron 2 mg/ML SDV 2 mL 4 MG IVP ×2 (22:10→23:20)
[2023-03-24] MEDS: sodium chloride 0.9% 1,000 ML 999 ML IV ×2 (22:10→23:20)
[2023-03-24 22:38] LABS: Alanine Aminotransferase 10 U/L (0-33); Albumin Level 3.4 g/dL (3.5-5.2); Alkaline Phosphatase 149 U/L (35-105); Aspartate Amino Transferase 24 U/L (0-32); Blood Urea Nitrogen 23 mg/dL (8-23); Calcium 9.7 mg/dL (8.5-10.5); Carbon Dioxide 18 mmol/L (22-29); Chloride 98 mmol/L (98-107); Globulin 4.3 g/dL (1.3-4.6); Glucose 248 mg/dL (65-115); NT Pro B Type Natriuretic Pept 3310 pg/mL (0-450); Osmolality Calculated 294 mOsm/kg (285-295); Sodium 136 mmol/L (136-145); Total Bilirubin 0.9 mg/dL (0.15-1.2); Total Protein 7.7 g/dL (6.6-8.7)
[2023-03-24 22:41] LABS: Anion Gap 25.1 (5-19); Potassium 5.1 mmol/L (3.5-5.1)
[2023-03-24 22:51] LABS: Troponin(5th) Baseline 67 ng/L (0-10)
[2023-03-24 23:17] LABS: Lactic Sepsis W/Reflex 7.9 mmol/L (0.5-2.2)
--- NOTE | 2023-03-24 23:18 | PC.NURSE ---
DR VERGARA notified of lactic 7.9 at bedside at this time.
[2023-03-24] MEDS: cefepime 2,000 MG in sodium chloride 0.9% (plus) 50 ML 100 MG IV (23:20)
[2023-03-24] MEDS: calcium gluconate 0.1 gm/mL 10% SDV 10mL 1 GM IVP (23:22)
--- NOTE | 2023-03-24 23:30 | PC.NURSE ---
Pt to CT with RN x3 on area field manager. Mottling noted to MD SARA aware.
--- NOTE | 2023-03-24 23:39 | CTR_ITS ---
PROCEDURE INFORMATION: Exam: CT Abdomen And Pelvis With Contrast Exam date and time: 03/25/2023 12:46 AM Age: 78 years old Clinical indication: Chest pressure; Abdominal pain; Generalized; Additional info: N/v, lactic acidosis, a-fib not on anticoagulation, eval bowel ischemia versus other, UTI ? pyelonephritis TECHNIQUE: Imaging protocol: Computed tomography of the abdomen and pelvis with contrast. 3D rendering (Not supervised by radiologist): MIP and/or 3D reconstructed images were created by the technologist. Radiation optimization: All CT scans at this facility use at least one of these dose optimization techniques: automated exposure control; mA and/or kV adjustment per patient size (includes targeted exams where dose is matched to clinical indication); or iterative reconstruction. Contrast material: OMNI 350; Contrast volume: 75 ml; Contrast route: INTRAVENOUS (IV); REPORTING DATA: Count of CT and Cardiac NM exams in prior 12 months: This patient has received 0 known CTs and 0 known cardiac nuclear medicine studies in the 12 months prior to the current study. COMPARISON: CR (CHEST, ) 03/24/2023 9:48 PM RADIATION DOSE METRICS: Total DLP (mGy-cm): 1840.05 FINDINGS: Liver: Hepatic steatosis. Gallbladder and bile ducts: Gallbladder wall appears prominent with pericholecystic fluid, ultrasound could further evaluate this. Pancreas: Normal. No ductal dilation. Spleen: Normal. No splenomegaly. Adrenal glands: Normal. No mass. Kidneys and ureters: Left kidney cyst, negative for follow-up advised. Stomach and bowel: Diverticulosis without diverticulitis. Appendix: No evidence of appendicitis. Intraperitoneal space: Unremarkable. No free air. No significant fluid collection. Vasculature: Aorta bi-iliac graft seen in place with suspected contrast extravasation into the aneurysm sac consistent with an endoleak, best seen series 4, image 449, the excluded aneurysm sac surrounding the graft into which the endoleak enters measures up to 6.4 cm in diameter and demonstrates a small amount of surrounding edema, perhaps reflecting a degree of leakage. Reflux of contrast into the intrahepatic veins suggesting congestive heart failure. Lymph nodes: Unremarkable. No enlarged lymph nodes. Urinary bladder: Dumont catheter in the urinary bladder with air in the urinary bladder presumed iatrogenic. Reproductive: 9.2 mm calcified fibroid. Bones/joints: Unremarkable. No acute fracture. Soft tissues: Unremarkable. CT/CT angio abdomen pelvis [id number] IMPRESSION: 1. 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 2. Hepatic steatosis. 3. Left kidney cyst, negative for follow-up advised. 4. 9.2 mm calcified fibroid. 5. Diverticulosis without diverticulitis. 6. Dumont catheter in the urinary bladder with air in the urinary bladder presumed iatrogenic. 7. Reflux of contrast into the intrahepatic veins suggesting congestive heart failure. 8. Gallbladder wall appears prominent with pericholecystic fluid, ultrasound could further evaluate this. THIS REPORT CONTAINS FINDINGS THAT MAY BE CRITICAL TO PATIENT CARE. The findings were verbally communicated via telephone conference with Dr. Landeros at 1:37 AM CDT on 03/25/2023. The findings were acknowledged and understood. COMMENTS: Consistent with the [employer] [place] [employer]'s Incidental Findings Committee white paper (J Am Yanick Radiol 2018): Any incidental renal lesion less than 1 cm or classified as too small to characterize, or any incidental cystic renal lesion characterized as simple-appearing, is likely benign. No follow-up imaging is recommended for these lesions per consensus recommendations based on imaging criteria.
[2023-03-25] VITALS (7 sets, daily range): BP systolic 0–99; BP diastolic 0–68; PULSE 0–148; RESP 0–36; TEMP -17.7–0; O2SAT 0–95
[2023-03-25] MEDS: phenylephrine inj 25 MG in sodium chloride 0.9% 250 ML 24.24 MG IV (00:11)
[2023-03-25] MEDS: vancomycin 1,750 MG/350 ML PIGGYBACK 233.33 MG IV (00:17)
[2023-03-25 00:35] LABS: Reflex Lactate Order REFLEX LACTIC ORDERD
--- NOTE | 2023-03-25 00:40 | PC.NURSE ---
Pt to CT with RN x3 on proposition player. Mottling noted of MD SARA aware.
--- NOTE | 2023-03-25 00:43 | CTR_ITS ---
PROCEDURE INFORMATION: Exam: CT Chest With Contrast; Diagnostic Exam date and time: 03/25/2023 12:53 AM Age: 78 years old Clinical indication: Pain; Chest pressure; Patient HX: Cta a/p first; Additional info: Evaluate for pe, pneumonia TECHNIQUE: Imaging protocol: Diagnostic computed tomography of the chest with contrast. Radiation optimization: All CT scans at this facility use at least one of these dose optimization techniques: automated exposure control; mA and/or kV adjustment per patient size (includes targeted exams where dose is matched to clinical indication); or iterative reconstruction. Contrast material: OMNI 350; Contrast volume: 25 ml; Contrast route: INTRAVENOUS (IV); REPORTING DATA: Count of CT and Cardiac NM exams in prior 12 months: This patient has received 0 known CTs and 0 known cardiac nuclear medicine studies in the 12 months prior to the current study. COMPARISON: CR (CHEST, ) 03/24/2023 9:48 PM RADIATION DOSE METRICS: Total DLP (mGy-cm): 489.66 FINDINGS: Lungs: Emphysematous changes. Patchy bilateral peripheral airspace infiltrates. Left lower lobe 12.4 mm pulmonary nodule. Pleural spaces: Unremarkable. No pneumothorax. No pleural effusion. Heart: See Vasculature finding. Coronary arteries: Coronary artery atherosclerotic calcifications. Lymph nodes: Unremarkable. No enlarged lymph nodes. Vasculature: Large bilateral pulmonary emboli extending from the distal portions of the right and left main pulmonary arteries with right heart strain given an RV to LV ratio of approximately 1.75. Aorta bi-iliac artery stent. Liver: Right hepatic lobe cyst. Gallbladder and bile ducts: Gallbladder wall calcification suspected. Kidneys and ureters: Left kidney cyst, negative for follow up. Bones/joints: Unremarkable. No acute fracture. Soft tissues: Unremarkable. CT/CT chest w con* [id number] IMPRESSION: 1. Large bilateral pulmonary emboli extending from the distal portions of the right and left main pulmonary arteries with right heart strain given an RV to LV ratio of approximately 1.75. 2. Emphysematous changes. 3. Patchy bilateral peripheral airspace infiltrates. 4. Left lower lobe 12.4 mm pulmonary nodule. For both low risk and high risk patients, consider CT Chest at 3 months, PET/CT, or biopsy. (Reference: Nella) 5. Right hepatic lobe cyst. 6. Left kidney cyst, negative for follow up. 7. Gallbladder wall calcification suspected. 8. Aorta bi-iliac artery stent. 9. Coronary artery atherosclerotic calcifications. COMMENTS: 1. Consistent with the [place] [employer]'s Incidental Findings Committee white paper (J Am Yanick Radiol 2018): Any incidental renal lesion less than 1 cm or classified as too small to characterize, or any incidental cystic renal lesion characterized as simple-appearing, is likely benign. No follow-up imaging is recommended for these lesions per consensus recommendations based on imaging criteria. 2. In the absence of a history or active diagnosis of lung cancer, it is recommended that this patient with emphysema be evaluated for enrollment in a low dose CT lung cancer screening program. REFERENCES: Nella H, et al. Guidelines for Management of Incidental Pulmonary Nodules Detected on CT Images: From the Fleischner Society 2017. Radiology. 2017;284(1):228-243.
--- NOTE | 2023-03-25 00:45 | PM.CONSULT ---
Providers/Reason For Consult Consulting Physician/Specialty*: Nisha Landeros MD/ Hospitalist Reason for Consult*: sepsis Requesting Physician: Pal Kat MD Attending Physician: Nisha Landeros MD Primary Care Provider: BETY Stock History of Present Illness History of Present Illness Angelic Rodriguez is a 78 year old female with a PMH CVA in January 2023 following which she has had a residual left sided weakness and facial droop. It appears this was a hemorrhagic stroke related to anuersymal bleed per daughter's history at bedside. On this admission at [facility] in [facility], she was also diagnosed with a cardiac thrombus and an endovascular abdominal aortic leak (she has a previously placed ? stent ? coil). She has a h/o A fib and used to be on Warfarin which was discontinued after the stroke, presumably due to bleeding. She moved into the [facility] one month ago. [place] from [place] are N/A at this time. She presented today to ER here with c/o abdominal pain that started this morning. She has also had significant nausea and vomiting all day today. Patient is visibly uncomfortable during the interview, can only speak in few short sentences, she has noticeable mottling in bilateral lower extremities and upper abdomen. At the time of my assessment she is on phenylephrine. She has recently been diagnosed with a UTI, recent urine cultures have shown Enterobacter and E. coli, appropriate antibiotics have been used, most recently she has been on levofloxacin over the last 3 days. On ER arrival she was noted to have a leukocytosis of 13, lactate of 7.98, she was in A-fib with RVR with heart rate ranging in the 140s. Due to concern for possible ischemic bowel given the abdominal symptoms, recent history of being taken off warfarin, and current A-fib, concern was for ischemic bowel. I have requested a CT of the abdomen and pelvis and also the chest given that patient was hypoxic, needing 5 L/min supplemental O2. these studies are pending at the time of assessment. Review of Systems General: Reports: ROS unobtainable due to medical condition Medications/Allergies Home Medications Medication Instructions Recorded Confirmed Last Taken Type amlodipine 5 mg tablet 5 mg PO QAM 03/08/23 03/22/23 03/21/23 History aspirin 325 mg tablet 325 mg PO QAM 03/08/23 03/22/23 03/21/23 History atorvastatin 40 mg tablet 40 mg PO BEDTIME 03/08/23 03/22/23 03/20/23 History hospital bed #1 ea 03/08/23 03/22/23 Unknown Rx lisinopril 20 mg tablet 20 mg PO BEDTIME 03/08/23 03/22/23 03/20/23 History magnesium oxide 400 mg (241.3 mg See Rx Instructions .Route .COMPLEX 03/08/23 03/22/23 03/20/23 History magnesium) tablet (MagOx) metoprolol tartrate 25 mg tablet See Rx Instructions .Route .COMPLEX 03/08/23 03/22/23 03/21/23 History omeprazole 20 mg tablet,delayed 20 mg PO QAM 03/08/23 03/22/23 03/21/23 History release wheelchair #1 ea 03/08/23 03/22/23 Unknown Rx potassium chloride 10 mEq 10 meq PO BID #60 caps 03/13/23 03/22/23 03/21/23 Rx capsule,extended release carboxymethylcellulose sodium 0.25 1 drp ophthalmic (eye) Q4H PRN Dry 03/21/23 03/22/23 Unknown History % eye drops (Lubricant Eye Drops) Eye(S) fluticasone propionate 50 2 spray intranasal BEDTIME 03/21/23 03/22/23 03/20/23 History mcg/actuation nasal spray,suspension furosemide 40 mg tablet 40 mg PO QAM 03/21/23 03/22/23 03/21/23 History levofloxacin 500 mg tablet 500 mg PO DAILY 10 days #10 tabs 03/21/23 03/22/23 Unknown Rx loratadine 10 mg tablet (Claritin) 10 mg PO BEDTIME 03/21/23 03/22/23 03/20/23 History polyethylene glycol 3350 17 gram 17 g PO DAILY PRN Constipation 03/21/23 03/22/23 Unknown History oral powder packet (Miralax) Allergies Allergy/AdvReac Type Severity Reaction Status Date / Time Penicillins Allergy ALGY-Hives Verified 03/24/23 21:31 amlodipine Allergy Intermediate ALGY-Hives Uncoded 03/22/23 14:35 codiene Allergy ALGY-Hives Uncoded 03/22/23 14:35 PFSH Acute PFSH: Medical History A-fib Aneurysm Hyperlipidemia Hypertension Stroke Surgical History Total knee replacement status Social History Smoking and tobacco status: never smoked Second hand smoke exposure: No Alcohol intake: never Substance/Drug Use: never Adopted: No Caregiver/support person: Yes Lives independently: No Marital status: / Number of children: 6 service: No Do you think of yourself as: Straight/Heterosexual Current gender identity: Female Vitals/I&O/Wt Last Vital Signs Temp 97.2 F L 03/24/23 21:31 Pulse 124 H 03/24/23 23:55 Resp 28 H 03/24/23 23:55 BP 102/72 03/24/23 23:55 Pulse Ox 94 03/24/23 21:31 O2 Del Method Nasal Cannula 03/24/23 23:55 O2 Flow Rate 2 03/24/23 23:55 03/24/23 03/24/23 03/25/23 14:59 22:59 06:59 Intake Total 1559.696 / 1559.696 Balance 1559.696 / 1559.696 Weight last 48 hrs Weight 76.204 kg Physical Exam Narrative: General: acute distress secondary to pain HEENT: pallor+ Chest: B/L anteriorly clear , tachypneic CVS: S1-S2 regular, no murmurs, no tachycardia, no gallops, no rubs Abdomen: Soft, non distened, tender to palpation diffusely, rigid Neuro: unable to assess as patient not following all commands 2/2 distress Extremities: mottled B/L LE extending up to the abdomen. Urinary Catheter Management: Dumont: Cath Placed During This Visit: yes Urinary Catheter Date of Insertion: 03/25/23 Urinary Catheter Time of Insertion: 00:05 Data 03/24/23 21:51 03/24/23 21:51 Micro: Microbiology 03/24/23 22:51 Blood Culture - Preliminary Blood SPECIMEN COLLECTED 03/24/23 22:22 Blood Culture - Preliminary Blood SPECIMEN COLLECTED A&P Assessment and plan (1) Septic shock: Patient brought to the anteroom today with chief complaints of abdominal pain nausea and vomiting. On arrival she has all signs of hypoperfusion including bilateral mottled extremities, hypotension, currently on phenylephrine few infusion, elevated lactate of 7.98, leukocytosis, tachycardia, tachypnea, acute hypoxic respiratory failure with new oxygen requirement of 5 L/min. Patient is lethargic, appears to be acutely uncomfortable. She has received empiric antibiotic coverage with cefepime and vancomycin, blood and urine cultures have been drawn Recent history of UTI for which she is appropriately on levofloxacin based on susceptibilities. Would not expect such a profoundly septic picture with acute cystitis that is otherwise appropriately covered with antibiotics unless there is obstructive uropathy or pyelonephritis contributing. CT of the abdomen and pelvis has been ordered to look for this possibility Additionally given elevated lactate of 7.9, abdominal pain, A-fib currently, recent history of cardiac thrombus and being taken off of anticoagulation strong clinical suspicion for ischemic bowel, CT of the abdomen and pelvis has been requested. We will additionally request CTA of the chest given new hypoxic respiratory failure, evaluate for any underlying pneumonia and PE. She has received 2 L of IV fluid bolus, start normal saline at 100 cc an hour Discontinue phenylephrine Start Levophed infusion Continue cefepime and vancomycin for empiric coverage while all culture data is pending. Repeat lactate is pending Baseline troponin at 67, will trend at 2 and 6 hours. Denies any complaints of chest pain at this time (2) Atrial fibrillation with RVR: A-fib with RVR with heart rate ranging between 120 to 150 bpm Thus far has received 1 dose of metoprolol 2.5 mg once Likely A-fib RVR precipitated by sepsis currently Start amiodarone infusion, 150 mg bolus over 15 minutes followed by 1 mg IV infusion given septic shock and hypotension (3) Urinary tract infection: Empiric cefepime and vancomycin Cultures taken and pending Qualifiers: Hematuria presence: without hematuria Urinary tract infection type: acute cystitis Qualified Code(s): N30.00 - Acute cystitis without hematuria Consult Attestations Medical Necessity Statement: Further orders to be based on results of CT chest and abdominal imaging Coding Level of Care Code Critical Care >/= 30 minutes Diagnoses Septic shock A41.9; R65.21 Atrial fibrillation with RVR I48.91 Urinary tract infection N30.00 Hematuria presence: without hematuria Urinary tract infection type: acute cystitis
[2023-03-25 00:54] LABS: Urine Appearance Hazy (CLEAR); Urine Color Yellow (Yellow); pH Urine 5 (5-7)
[2023-03-25 00:55] LABS: Troponin 5 2HR 64.01 ng/L (0-10)
[2023-03-25 00:55] LABS: Add Urine Microscopic? YES; Bilirubin Urine Neg (Negative); Blood Urine Neg (Negative); Glucose Urine UA Norm (Normal); Ketones Urine Negative (Negative); Leukocyte Esterase Urine Negative (Negative); Nitrate Urine Negative (Negative); Protein Urine Trace (Negative); Urobilinogen Urine Norm (Negative)
[2023-03-25 00:56] LABS: Bacteria Urine 2+ /hpf; RBC Urine 0-4 /hpf (0-2); WBC Urine 0-4 /hpf (0-5)
[2023-03-25] MEDS: iohexol 350 mg/mL 500 mL Btl (per mL) IV (01:01)
[2023-03-25 01:05] LABS: Troponin 5 2HR Delta -2.99 ABS# (0-10)
--- NOTE | 2023-03-25 01:05 | PC.NURSE ---
Dr. Kaplan to bedside to put in central line.
--- NOTE | 2023-03-25 01:28 | PC.NURSE ---
Dr Kaplan called to bedside secondary to pt becoming unresponsive, pulse present becoming bradycardic, breathing pattern changed assisted with BVM. Set up intubation for Dr. Kaplan. Pt then became pulseless and ACLS began. See code sheet.
--- NOTE | 2023-03-25 02:05 | PC.NURSE ---
[facility]
[2023-03-25 03:41] LABS: Lactic Acid level (Lactate) 8.1 mmol/L (0.5-2.2)
--- NOTE | 2023-03-25 03:44 | PC.NURSE ---
03/25/23 at 0208 [facility] notified of
--- NOTE | 2023-03-25 04:55 | PC.NURSE ---
03/25/23 at 0445 [facility] called & said family has declined donation, also declined [facility].
--- NOTE | 2023-03-25 04:58 | PC.NURSE ---
Margarita time [id number]
== END 2023-03-25 05:00 | disposition expired ==
LOC: ER 23:34 → ER IP 03-25 02:22 → ER 03-25 03:37
PROVIDERS: Emergency Medicine; Emergency Provider Emergency Medicine; PCP Nurse Practitioner Family
DX: A41.9 Sepsis, unspecified organism (principal); R65.21 Severe sepsis with septic shock; N39.0 Urinary tract infection, site not specified; I26.99 Other pulmonary embolism without acute cor pulmonale; I46.9 Cardiac arrest, cause unspecified; I48.91 Unspecified atrial fibrillation
CPT/HCPCS: 31500; 36415; 36556; 51702; 71045; 71260; 74174; 80053; 81001; 83605; 83735; 83880; 84484; 85025; 87040; 93005; 96365; 96375; 96376; 99291; 99292; J0171; J0612; J0692; J2370; J2405; J3372; J3490; J7030; J7040; J7050; Q9967